=== PATIENT | female | born 1975 | race African-American/Black ===

== ENCOUNTER 2019-05-22 10:04 | Emergency (ER) | payer OTHER ==
[~2019-05-22] VITALS: Ht 172.7 cm; Wt 70.3 kg
[~2019-05-22 10:04] MED LIST: HYDR-3165 PO; NEBI5TAB2 PO; PENI500T PO
[2019-05-22 10:10] VITALS: BP 139/85
[2019-05-22] MEDS ORDERED: KETOROLAC 60 MG/2 ML VIAL. IM ONE (10:30)
[2019-05-22] MEDS ORDERED: HYDR-3165 PO (10:43)
--- NOTE | 2019-05-22 11:30 | RAD ---
EXAM: Right shoulder, 3 views. HISTORY: Trauma. COMPARISON: None. FINDINGS: 3 views of the right shoulder obtained. There is no fracture, dislocation or subluxation. IMPRESSION: No acute osseous finding. Electronically signed by: Dee Ochoa MD (05/22/2019 11:27 AM) [place] [id number]
--- NOTE | 2019-05-22 11:42 | PHYS DOC ---
Past History Past Medical History: Hypertension, Migraines Additional Past Medical Histor: dental cavity Past Surgical History: Alcohol Use: None Drug Use: None Adult General Chief Complaint Chief Complaint: UPPER EXTREMITY PAIN HPI HPI Patient is a 43-year-old female who got placed in between a refrigerator and the wall while trying to move her history with family members last night think she strained her right shoulder is worried she might have pinched a nerve radiate from the shoulder down to the elbow even intermittent tingling in the thumb as well in addition she is having a migraine today she is [place] her migraine was getting worse in addition she has a heavy period today as well struggles with that regularly. Review of Systems Review of Systems Constitutional: Denies fever or chills [] Eyes: Denies change in visual acuity, redness, or eye pain [] HENT: Denies nasal congestion or sore throat [] Respiratory: Denies cough or shortness of breath [] Cardiovascular: No additional information not addressed in HPI [] GI: Denies abdominal pain, nausea, vomiting, bloody stools or diarrhea [] : Denies dysuria or hematuria [] Musculoskeletal: Denies back pain or joint pain [] Integument: Denies rash or skin lesions [] Neurologic: Denies headache, focal weakness or sensory changes [] Endocrine: Denies polyuria or polydipsia [] All other systems were reviewed and found to be within normal limits, except as documented in this note. Current Medications Current Medications Current Medications Medications (Trade) Dose Ordered Sig/[facility] Start Time Stop Time Status Last Admin Dose Admin Ketorolac Tromethamine (Toradol Im) 60 mg 1X ONCE 05/22/19 10:30 05/22/19 10:36 DC 05/22/19 10:41 60 MG Allergies Allergies Allergies Coded Allergies Type Severity Reaction Last Updated Verified No Known Drug Allergies 08/26/15 No Physical Exam Physical Exam Constitutional: Well developed, well nourished, no acute distress, non-toxic appearance. [] HENT: Normocephalic, atraumatic, bilateral external ears normal, oropharynx moist, no oral exudates, nose normal. [] cracked tooth left mandible area no swelling. Eyes: PERRLA, EOMI, conjunctiva normal, no discharge. [] Neck: Normal range of motion, no tenderness, supple, no stridor. [] Skin: Warm, dry, no erythema, no rash. [] Back: No tenderness, no CVA tenderness. [] Extremities:ttp right shoulder rom fairly intact. Neurologic: Alert and oriented X 3, normal motor function, normal sensory function, no focal deficits noted. [] Psychologic: Affect normal, judgement normal, mood normal. [] Current Patient Data Vital Signs Vital Signs Date Time Temp Pulse Resp B/P (MAP) Pulse Ox O2 Delivery O2 Flow Rate FiO2 05/22/19 10:10 98.4 88 20 99 Room Air Lab Results C/O HEAVY MENSTRUAL PERIOD AND FEELS A MIGRAINE COMING ON. SHE HAS TAKEN IBUPROFEN, LAST DOSE AT 0700. ARM PAIN AT 7/10, TOOTH PAIN AT 1010 Distress * Mild Temperature (Fahrenheit): * 98.4 degrees F (97.6-99.5) Patient Temperature * 98.4 degrees F (97.5-99.5) Temperature Source * Oral Blood Pressure Systolic * 139 mm Hg (100-140) Blood Pressure Diastolic * 85 mm Hg (60-100) Blood Pressure Mean * 103 mm Hg Blood Pressure Location * Left Arm Blood Pressure Source * Automatic Cuff Pulse Rate * 88 beats per minute (60-90) Pulse Assessment Method * Monitor Respiratory Rate * 20 breaths per minute (12-24) Oxygen Delivery Method EKG EKG [] Radiology/Procedures Radiology/Procedures [] Impressions: COMPARISON: None. FINDINGS: 3 views of the right shoulder obtained. There is no fracture, dislocation or subluxation. IMPRESSION: No acute osseous finding. Electronically signed by: Dee Ochoa MD (05/22/2019 11:27 AM) [facility] DICTATED AND SIGNED BY: DEE OCHOA MD DATE: 05/22/19 1127 CC: CARLOS GOLDMAN DO; STELLA GALLOWAY MD ~ Course & Med Decision Making Course & Med Decision Making Pertinent Labs and Imaging studies reviewed. (See chart for details) []shoulder sprain most likely, neuro intact distally sling rest gradual return to activity vitals stable cracked tooth no infection. Dragon Disclaimer Dragon Disclaimer This electronic medical record was generated, in whole or in part, using a voice recognition dictation system. Departure Departure: Impression: Primary Impression: Shoulder pain Disposition: 01 HOME, SELF-CARE Condition: STABLE Patient Instructions: Shoulder Pain, [id number] Scripts Hydrocodone Bit/Acetaminophen (NORCO 5-325 TABLET) 1 Each Tablet 1-2 TAB PO Q4-6HRS PRN for PAIN, #10 TAB Prov: STELLA GALLOWAY MD 05/22/19 STELLA GALLOWAY MD May 22, 2019 11:42
== END 2019-05-22 10:50 | disposition home or self-care (01) ==
LOC: ER 10:04
DX: M25.511 Pain in right shoulder (principal); I10 Essential (primary) hypertension; G43.909 Migraine, unspecified, not intractable, without status migrainosus; W23.0XXA Caught, crushed, jammed, or pinched between moving objects, initial encounter; Y93.89 Activity, other specified; Y92.89 Other specified places as the place of occurrence of the external cause; Y99.8 Other external cause status
CPT/HCPCS: 73030; 96372; 99284; J1885

== ENCOUNTER 2020-08-01 14:10 | Emergency (ER) | payer OTHER ==
[~2020-08-01] VITALS: Ht 167.6 cm; Wt 90.0 kg
[2020-08-01 15:06] VITALS: BP 143/90
--- NOTE | 2020-08-01 15:37 | PHYS DOC ---
Past History Past Medical History: No Pertinent History Additional Past Medical Histor: dental cavity Past Surgical History: No Surgical History Alcohol Use: Occasionally Drug Use: None General Adult EDM: Chief Complaint: DENTAL PROBLEM HPI: HPI: Patient is a 45-year-old female coming in for pain to her right lower canine. Patient states the benefit of about 2 days and has a cavity she has known about for a while. Has not no go to the dentist due to COVID-19. Denies any recent trauma to the tooth. Patient states she thinks she felt a little bit of drainage last night. Is been taking naproxen and ibuprofen for pain. Pain radiates to the jaw, no throat pain or difficulty swallowing. No facial swelling. Otherwise been well denies any recent fevers, vomiting, diarrhea, cough Review of Systems: Review of Systems: All other systems within normal limits except for as noted in the HPI Allergies: Allergies: Allergies Coded Allergies Type Severity Reaction Last Updated Verified No Known Drug Allergies 08/26/15 No Physical Exam: PE: Constitutional: Well developed, well nourished, no acute distress, non-toxic appearance. [] HENT: Normocephalic, atraumatic, bilateral external ears normal, nose normal. [] Poor dentition, multiple missing teeth, large dental carry in anterior portion of right lower tooth. Gingival swelling without abscess Eyes: PERRLA, conjunctiva normal, no discharge. [] Neck: No rigidity, supple, no stridor. [] Cardiovascular: Regular rate and rhythm, brisk cap refill [] Lungs & Thorax: Non labored symmetric respirations, no tachypnea or respiratory distress [] Abdomen: Soft, nondistended. Skin: Warm, dry, no erythema, no rash. [] Back: No tenderness, no CVA tenderness. [] Extremities: No deformities, range of motion grossly intact, no lower extremity edema [] Neurologic: Alert and oriented X 3, no focal deficits noted. [] Psychologic: Affect normal, judgement normal, mood normal. [] Current Patient Data: Vital Signs: Vital Signs Date Time Temp Pulse Resp B/P (MAP) Pulse Ox O2 Delivery O2 Flow Rate FiO2 08/01/20 15:16 97.7 16 99 Room Air 08/01/20 15:06 100 EKG: EKG: [] Radiology/Procedures: Radiology/Procedures: [] Heart Score: Risk Factors: Risk Factors: DM, Current or recent (<one month) smoker, HTN, HLP, family history of CAD, obesity. Risk Scores: Score 0 - 3: 2.5% MACE over next 6 weeks - Discharge Home Score 4 - 6: 20.3% MACE over next 6 weeks - Admit for Clinical Observation Score 7 - 10: 72.7% MACE over next 6 weeks - Early Invasive Strategies Course & Med Decision Making: Course & Med Decision Making Pertinent Labs and Imaging studies reviewed. (See chart for details) [] Dragon Disclaimer: Dragon Disclaimer: This electronic medical record was generated, in whole or in part, using a voice recognition dictation system. Departure Departure: Impression: Primary Impression: Dental abscess Disposition: 01 DC HOME SELF CARE/HOMELESS Condition: STABLE Referrals: CARLOS GOLDMAN DO (PCP) Patient Instructions: Dental Abscess Scripts Tramadol Hcl (TRAMADOL HCL) 50 Mg Tablet 50 MG PO PRN Q6HRS PRN for PAIN for 3 Days, #10 TAB Prov: MIGUEL ROBERTO MD 08/01/20 Amoxicillin/Potassium Clav (AUGMENTIN 875-125 TABLET) 1 Each Tablet 1 TAB PO BID for atibiotic for 7 Days, #14 TAB 0 Refills Prov: MIGUEL ROBERTO MD 08/01/20 MIGUEL ROBERTO MD Aug 01, 2020 15:37
[2020-08-01] MEDS ORDERED: TRAM50TA PO (15:42)
[2020-08-01] MEDS ORDERED: AMOX1TAB61 PO (15:42)
== END 2020-08-01 15:45 | disposition home or self-care (01) ==
LOC: ER 14:10
DX: K04.7 Periapical abscess without sinus (principal); K08.89 Other specified disorders of teeth and supporting structures
CPT/HCPCS: 99283